=== PATIENT | male | born 1985 | race Caucasian/White ===

== ENCOUNTER 2022-09-14 08:59 | Emergency (ER) | payer SELFPAY ==
[~2022-09-14] VITALS: Ht 172.7 cm; Wt 88.2 kg
[2022-09-14 09:00] VITALS: BP 165/115
--- NOTE | 2022-09-14 09:30 | NUR ---
36YO MALE PT C/O ABD PAIN XTODAY. REPORTS SUDDEN ONSET ALONG W/ NAUSEA, URINARY URGENCY AND MILD RETENTION. ABD SOFT AND TENDER. STATES PREVIOUS S/S 1 YEAR AGO AND TOLD IT WAS "INTESTINAL CRAMPING". DENIES DYSURIA, V/D, FEVER, CHILLS OR TAKING MEDICATION. PT AAOX4, IN VISIBLE DISTRESS AND GUARDING ABD. HOB POSITIONED PER COMFORT. HONDURAN SPEAKING. HX:DENIES NKA
[2022-09-14] MEDS ORDERED: ONDANSETRON 4 MG/2 ML VIAL IVP ONE (09:45)
[2022-09-14] MEDS ORDERED: MORPHINE SULFATE 4 MG/ML SYR IVP ONE ×2 (09:45→14:15)
[2022-09-14 10:13] LABS: APPEARANCE,URINE CLEAR (CLEAR); BILIRUBIN,URINE NEGATIVE (NEGATIVE); BLOOD, URINE 3+ (NEGATIVE); COLOR,URINE YELLOW (YELLOW); LEUKOCYTE ESTERASE ,URINE NEGATIVE (NEGATIVE); NITRITE, URINE NEGATIVE (NEGATIVE); PH,URINE 5.5 (5.0-9.0); UGLUCOSE NEGATIVE (NEGATIVE)
[2022-09-14 10:15] LABS: BASOPHILS % (AUTO) 0.3 % (0.0-2.0); EOSINOPHILS % (AUTO) 0.2 % (0.0-4.0); HEMATOCRIT 47.3 % (36-52); LYMPHOCYTES # (AUTO) 1.3 K/uL (2.0-11.5); MEAN CORPUSCULAR HEMOGLOBIN 29 pg (27-31); MEAN CORPUSCULAR HGB CONC 34 g/dL (33-37); MEAN CORPUSCULAR VOLUME 85.3 fL (80-94); MONOCYTES # (AUTO) 0.5 K/uL (0.8-1.0); NEUTROPHILS # (AUTO) 9.9 K/uL (1.8-7.7); NEUTROPHILS % (AUTO) 84.5 % (42.2-75.2); PLATELET COUNT (AUTO) 264 K/uL (140-450); RED BLOOD CELL COUNT(AUTO) 5.54 MIL/uL (4.20-6.10); RED CELL DISTRIBUTION WIDTH 12.9 % (11.6-13.7); WHITE BLOOD COUNT (AUTO) 11.8 K/uL (4.8-10.8)
[2022-09-14 10:31] LABS: RBC,URINE 20-50 /HPF (0-5); WBC,URINE 0-5 /HPF (0-5)
[2022-09-14 10:34] LABS: ALBUMIN 4.5 g/dL (3.4-5.0); ANION GAP 14.7 (8-16); CARBON DIOXIDE 25.7 mmol/L (21-32); CREATININE 1.1 mg/dL (0.6-1.3); POTASSIUM 4.4 mmol/L (3.5-5.1); TOTAL BILIRUBIN 0.7 mg/dL (0.0-1.0)
--- NOTE | 2022-09-14 10:53 | NUR ---
PT TAKEN TO CT VIA АНДРЕ[facility]
--- NOTE | 2022-09-14 11:03 | NUR ---
PT BROUGHT BACK VIA АНДРЕЙ
[2022-09-14 13:18] VITALS: BP 138/84
[2022-09-14] MEDS ORDERED: IBUP-2213 PO (14:09)
[2022-09-14] MEDS ORDERED: CEPH-588 PO (14:09)
--- NOTE | 2022-09-14 14:32 | NUR ---
IV removed, catheter intact and site benign. Applied folded 4x4 gauze and tape to stop bleeding.
--- NOTE | 2022-09-14 14:55 | NUR ---
The patient's care was reviewed and supervised by Carol Sharma RN.
--- NOTE | 2022-09-14 14:55 | NUR ---
Patient discharged with v/s stable. Written and verbal after care instructions FOR RENAL COLIC AND HYPERTENSION given and explained. Patient alert, oriented and verbalized understanding of instructions. Ambulatory with steady gait. All questions addressed prior to discharge. ID band removed. Patient advised to follow up with PMD. Rx of KELFEX AND IBUPROFEN given. Opportunity to ask questions provided and answered.
== END 2022-09-14 14:55 | disposition home or self-care (01) ==
LOC: MED 08:59 → EDSEX 08:59 → MED 14:55
DX: N23 Unspecified renal colic (principal); I10 Essential (primary) hypertension; Z79.899 Other long term (current) drug therapy
CPT/HCPCS: 36415; 74177; 80053; 81001; 83690; 85025; 96374; 96375; 96376; 99285; J2270; J2405; Q9967